=== PATIENT | male | born 1955 | race Caucasian/White ===

== ENCOUNTER → 2016-12-10 | Outpatient (CLI) | payer BC ==
[~2016-12-10] MED LIST: ALBUTEROL0.83 MG/ML IH; ASPIRIN 81M81 MG/TA2 PO; ATROVENT I0.2 MG/1 M IH; BREO IH; CARDIZEM CD 12120 MG PO; CARTIA XT180 MG PO; CELEXA10 MG PO; CLARITIN LIQUI-10 MG PO; DALIRESP500 MCG PO; DOXYCYCLINE 10100 MG PO; FLOMAX 0.40.4 MG/CAP PO; LEVAQUIN 5500 MG/TA1 PO; LEVAQUIN 750MG750 M1 PO; LEVSIN 0.10.125 MG/T PO; LYRICA 150MG C150 MG PO; METOZOLV ODT5 MG PO; MIRAPEX 0.0.125 MG/T PO; PREDNISONE20 MG PO; PRILOSEC 20MG20 MG PO; PROAIR HFA0.09 MG/AC IH; REGLAN 5MG T5 MG/TAB PO; RESTORIL30 MG; SINGULAIR 110 MG/TAB PO; TESSALON P100 MG/CAP PO; TUDORZA IH; ZITHROMAX 250M250 MG PO; ZOCOR 20MG20 MG PO
[2016-12-10 17:08] LABS: HEMATOCRIT 38.4 % (42.0-52.0); HEMOGLOBIN 13.3 g/dl (13.5-18.0); MEAN CELL VOLUME 105 fl (80.0-100.0); MEAN CORPUSCULAR HEMOGLOBIN 36 pg (27.0-31.0); MEAN CORPUSCULAR HGB CONC 35 g/dl (33.0-37.0); MEAN PLATELET VOLUME 9.2 fl (7.4-10.4); PLATELET COUNT 241 K/mm3 (130-400); RED BLOOD COUNT 3.67 M/mm3 (4.20-5.60); REDCELL DISTRIBUTION WIDTH-CV 14.6 % (11.5-14.5); WHITE BLOOD COUNT 10.9 K/mm3 (4.8-10.8)
[2016-12-10 17:12] LABS: INR 1.1 (0.8-3.0); PROTHROMBIN TIME 12.3 SECONDS (9.7-12.8)
[2016-12-10 17:15] LABS: PARTIAL THROMBOPLASTIN TIME 33.9 SECONDS (26.0-37.0)
== END ==
LOC: COL.LAB 16:45
PROVIDERS: Physician Assistant
DX: R23.3 Spontaneous ecchymoses (principal)

== ENCOUNTER 2017-01-22 22:07 | Emergency (ER) | payer BC ==
[~2017-01-22] VITALS: Ht 177.8 cm; Wt 68.2 kg
[~2017-01-22 22:07] MED LIST changes: -ALBUTEROL0.83 MG/ML IH; -BREO IH; -CARDIZEM CD 12120 MG PO; -CARTIA XT180 MG PO; -CELEXA10 MG PO; -DALIRESP500 MCG PO; -DOXYCYCLINE 10100 MG PO; -LEVAQUIN 750MG750 M1 PO; -LEVSIN 0.10.125 MG/T PO; -METOZOLV ODT5 MG PO; -MIRAPEX 0.0.125 MG/T PO; -PROAIR HFA0.09 MG/AC IH; -REGLAN 5MG T5 MG/TAB PO; -TUDORZA IH; -ZITHROMAX 250M250 MG PO; -ZOCOR 20MG20 MG PO
[2017-01-22 22:17] VITALS: TEMP 98.1
[2017-01-22 23:04] LABS: BASO # 0.1 (0.0-0.2); BASO % 0.5 % (0.0-2.0); EOS # 0.2 (0.0-0.7); EOS % 2.1 % (0-4.0); GRAN % 63.7 % (42.2-75.2); LYMPH # 2.4 (1.2-3.4); LYMPH % 21.5 % (20.0-51.0); MEAN CELL VOLUME 108 fl (80.0-100.0); MEAN CORPUSCULAR HGB CONC 34 g/dl (33.0-37.0); MEAN PLATELET VOLUME 9.7 fl (7.4-10.4); MONO # 1.3 (0.1-0.6); MONO % 11.5 % (1.7-9.3); PLATELET COUNT 240 K/mm3 (130-400); RED BLOOD COUNT 3.27 M/mm3 (4.20-5.60); REDCELL DISTRIBUTION WIDTH-CV 14.8 % (11.5-14.5)
[2017-01-22 23:05] LABS: HEMATOCRIT 35.4 % (42.0-52.0); HEMOGLOBIN 11.9 g/dl (13.5-18.0); MEAN CORPUSCULAR HEMOGLOBIN 36 pg (27.0-31.0)
[2017-01-22 23:12] LABS: ADJUSTED CALCIUM 9.3 mg/dL (8.4-10.2); ALANINE AMINOTRANSFERASE 23 U/L (21-72); ALBUMIN 4.3 gm/dL (3.5-5.0); ALKALINE PHOSPHATASE 67 U/L (50-136); ANION GAP 12 mmol/L (7-16); BILIRUBIN,TOTAL 0.6 mg/dL (0.0-1.0); BLOOD UREA NITROGEN 17 mg/dL (9-20); CALCIUM 9.5 mg/dL (8.4-10.2); CARBON DIOXIDE 31 mmol/L (22-30); CHLORIDE 99 mmol/L (98-107); CREATININE, serum 0.88 mg/dL (0.66-1.25); GLUCOSE 89 mg/dL (74-106); PHOSPHOROUS 4.4 mg/dL (2.5-4.5); POTASSIUM 3.7 mmol/L (3.4-5.0); SODIUM 142 mmol/L (137-145); TOTAL PROTEIN 7.5 gm/dL (6.4-8.2)
[2017-01-22 23:22] LABS: B-TYPE NATRIURETIC PEPTIDE 302 pg/mL (0-125)
[2017-01-22 23:23] LABS: PROTHROMBIN TIME 11.2 SECONDS (9.7-12.8)
[2017-01-22 23:26] LABS: PARTIAL THROMBOPLASTIN TIME 27.1 SECONDS (26.0-37.0)
[2017-01-22 23:40] LABS: TROPONIN-I < 0.012 ng/mL (0.000-0.034)
[2017-01-22 23:58] LABS: PH 7 (5-8); SQUAMOUS EPITHELIAL None Seen /hpf; URINE APPEARANCE Clear; URINE BACTERIA None Seen /hpf; URINE BILIRUBIN Negative (NEGATIVE); URINE BLOOD Negative (NEGATIVE); URINE COLOR Straw; URINE GLUCOSE Negative (NEGATIVE); URINE KETONE Negative (NEGATIVE); URINE RBC 0-2 /hpf; URINE UROBILINOGEN Negative (NEGATIVE); URINE WBC None Seen /hpf
[2017-01-23] MEDS ORDERED: FLOMAX 0.40.4 MG/CAP PO (00:29)
[2017-01-23] MEDS ORDERED: LEVAQUIN 750MG750 M1 PO (00:29)
[2017-01-23] MEDS ORDERED: PREDNISONE20 MG PO (00:29)
[2017-01-23 01:56] VITALS: BP 140/87; PULSE 79
[2017-08-07] MEDS ORDERED: ZITHROMAX 250M250 MG PO (15:20)
== END 2017-01-23 01:58 | disposition home or self-care (01) ==
LOC: COL.ER 22:07
PROVIDERS: Emergency Medicine
DX: J18.9 Pneumonia, unspecified organism (principal); R33.9 Retention of urine, unspecified; Z99.81 Dependence on supplemental oxygen; Z90.2 Acquired absence of lung [part of]; Z85.118 Personal history of other malignant neoplasm of bronchus and lung; I10 Essential (primary) hypertension
CPT/HCPCS: J2930; Q9967

== ENCOUNTER 2017-04-15 20:55 | Emergency (ER) | payer BC ==
[~2017-04-15] VITALS: Ht 177.8 cm; Wt 69.5 kg
[~2017-04-15 20:55] MED LIST changes: +LEVAQUIN 750MG750 M1 PO
[2017-04-15 20:57] VITALS: BP 127/83; TEMP 99.1
[2017-04-15] MEDS ORDERED: MIRAPEX 0.0.125 MG/T PO (21:15)
[2017-04-15] MEDS ORDERED: ALBUTEROL0.83 MG/ML IH (21:16)
[2017-04-15] MEDS ORDERED: CELEXA10 MG PO (21:16)
[2017-04-15] MEDS ORDERED: TUDORZA IH (21:16)
[2017-04-15] MEDS ORDERED: DOXYCYCLINE 10100 MG PO (22:04)
[2017-04-15] MEDS ORDERED: PREDNISONE20 MG PO (22:04)
[2017-04-15] MEDS ORDERED: BREO IH (22:07)
[2017-04-15] MEDS ORDERED: PROAIR HFA0.09 MG/AC IH (22:08)
[2017-04-15 22:35] VITALS: PULSE 93
[2017-08-07] MEDS ORDERED: ZITHROMAX 250M250 MG PO (15:20)
== END 2017-04-15 22:37 | disposition home or self-care (01) ==
LOC: COL.ER 20:55
DX: J44.9 Chronic obstructive pulmonary disease, unspecified (principal); I27.2 Other secondary pulmonary hypertension; Z85.118 Personal history of other malignant neoplasm of bronchus and lung
CPT/HCPCS: J7512

== ENCOUNTER 2017-05-20 17:05 | Emergency (ER) | payer BC ==
[~2017-05-20] VITALS: Ht 177.8 cm; Wt 68.2 kg
[~2017-05-20 17:05] MED LIST changes: +ALBUTEROL0.83 MG/ML IH; +BREO IH; +CELEXA10 MG PO; +DOXYCYCLINE 10100 MG PO; +MIRAPEX 0.0.125 MG/T PO; +PROAIR HFA0.09 MG/AC IH; +TUDORZA IH
[2017-05-20 17:09] VITALS: TEMP 98.2
[2017-05-20] MEDS ORDERED: DALIRESP500 MCG PO (17:32)
[2017-05-20] MEDS ORDERED: CARDIZEM CD 12120 MG PO (17:33)
[2017-05-20 17:47] LABS: HEMOGLOBIN 16.8 g/dl (13.5-18.0); MEAN CELL VOLUME 105 fl (80.0-100.0); MEAN CORPUSCULAR HEMOGLOBIN 38 pg (27.0-31.0); MEAN CORPUSCULAR HGB CONC 37 g/dl (33.0-37.0); MEAN PLATELET VOLUME 9.2 fl (7.4-10.4); PLATELET COUNT 252 K/mm3 (130-400); RED BLOOD COUNT 4.37 M/mm3 (4.20-5.60)
[2017-05-20 17:51] LABS: ADD PATHOLOGY DIFF REVIEW NO; PROTHROMBIN TIME 10.6 SECONDS (9.7-12.8); WHITE BLOOD COUNT 20.4 K/mm3 (4.8-10.8)
[2017-05-20 17:54] LABS: PARTIAL THROMBOPLASTIN TIME 24.6 SECONDS (26.0-37.0)
[2017-05-20 17:55] LABS: ADJUSTED CALCIUM 9.5 mg/dL (8.4-10.2); ALBUMIN 4.8 gm/dL (3.5-5.0); BILIRUBIN,TOTAL 0.8 mg/dL (0.0-1.0); CALCIUM 10.1 mg/dL (8.4-10.2); CREATININE, serum 1.05 mg/dL (0.66-1.25); POTASSIUM 4.7 mmol/L (3.4-5.0)
[2017-05-20 18:07] LABS: BAND 4 % (0-10); EOSINOPHIL 2 % (0-4); METAMYELOCYTE 1 % (0-0); NEUTROPHILS 69 % (42.0-75.2); POLYCHROMASIA 1+; TOTAL CELLS COUNTED 100; TROPONIN-I 0.018 ng/mL (0.000-0.034)
[2017-05-20 18:56] LABS: ALLEN TEST YES; ARTERIAL BLD GAS O2 SATURATION 96.2 % (92-100); ARTERIAL BLOOD GAS BASE EXCESS -0.8 (-2-2); ARTERIAL BLOOD GAS HCO3 21.1 meq/L (22-26); ARTERIAL BLOOD GAS PO2 82.9 mmHg (80-100); ARTERIAL BLOOD GAS pH 7.48 (7.35-7.45); ATS? YES; OXYHEMOGLOBIN 94.1 %
[2017-05-20 19:56] LABS: PH 5 (5-8); SQUAMOUS EPITHELIAL None Seen /hpf; URINE APPEARANCE Clear; URINE BACTERIA None Seen /hpf; URINE BILIRUBIN Negative (NEGATIVE); URINE BLOOD 1+ (NEGATIVE); URINE COLOR Yellow; URINE GLUCOSE Negative (NEGATIVE); URINE KETONE Negative (NEGATIVE); URINE RBC 0-2 /hpf; URINE UROBILINOGEN Negative (NEGATIVE); URINE WBC 0-2 /hpf
[2017-05-20 20:00] VITALS: BP 120/87; PULSE 96
[2017-07-25] VITALS (331 sets, daily range): O2SAT 64–100
[2017-07-26] VITALS (1279 sets, daily range): O2SAT 86–100
[2017-07-27] VITALS (816 sets, daily range): O2SAT 84–100
[2017-08-07] MEDS ORDERED: ZITHROMAX 250M250 MG PO (15:20)
== END 2017-05-20 20:00 | disposition home or self-care (01) ==
LOC: COL.ER 17:05
PROVIDERS: Family Medicine
DX: R06.00 Dyspnea, unspecified (principal); I48.92 Unspecified atrial flutter; Z85.118 Personal history of other malignant neoplasm of bronchus and lung; Z90.2 Acquired absence of lung [part of]

== ENCOUNTER → 2017-07-22 | Outpatient (CLI) | payer BC ==
[~2017-07-22] MED LIST changes: +CARDIZEM CD 12120 MG PO; +CARTIA XT180 MG PO; +DALIRESP500 MCG PO; +LEVSIN 0.10.125 MG/T PO; +METOZOLV ODT5 MG PO; +REGLAN 5MG T5 MG/TAB PO; +ZITHROMAX 250M250 MG PO; +ZOCOR 20MG20 MG PO
== END ==
LOC: COL.RAD 10:11
DX: R94.6 Abnormal results of thyroid function studies (principal)
CPT/HCPCS: A9516

== ENCOUNTER 2017-07-25 14:11 | Inpatient (IN) | payer BC ==
[~2017-07-25] VITALS: Ht 177.8 cm; Wt 68.7 kg
[~2017-07-25 14:11] MED LIST changes: -CARTIA XT180 MG PO; -LEVSIN 0.10.125 MG/T PO; -METOZOLV ODT5 MG PO; -REGLAN 5MG T5 MG/TAB PO; -ZITHROMAX 250M250 MG PO; -ZOCOR 20MG20 MG PO
[2017-07-25 14:43] LABS: BASO # 0.1 (0.0-0.2); BASO % 0.3 % (0.0-2.0); EOS # 0.1 (0.0-0.7); EOS % 0.6 % (0-4.0); GRAN # 14.3 (1.4-6.5); GRAN % 84.2 % (42.2-75.2); HEMATOCRIT 37.6 % (42.0-52.0); HEMOGLOBIN 12.5 g/dl (13.5-18.0); LYMPH # 1.5 (1.2-3.4); LYMPH % 8.6 % (20.0-51.0); MEAN CELL VOLUME 112 fl (80.0-100.0); MEAN CORPUSCULAR HEMOGLOBIN 37 pg (27.0-31.0); MEAN CORPUSCULAR HGB CONC 33 g/dl (33.0-37.0); MEAN PLATELET VOLUME 9.3 fl (7.4-10.4); MONO % 5.9 % (1.7-9.3); PLATELET COUNT 224 K/mm3 (130-400); RED BLOOD COUNT 3.36 M/mm3 (4.20-5.60); REDCELL DISTRIBUTION WIDTH-CV 14.5 % (11.5-14.5)
[2017-07-25 14:53] LABS: ADJUSTED CALCIUM 9.1 mg/dL (8.4-10.2); BILIRUBIN,TOTAL 0.5 mg/dL (0.0-1.0); CALCIUM 9.1 mg/dL (8.4-10.2); CREATININE, serum 0.74 mg/dL (0.66-1.25); POTASSIUM 3.6 mmol/L (3.4-5.0); TOTAL PROTEIN 6.8 gm/dL (6.4-8.2)
[2017-07-25] MEDS ORDERED: METOZOLV ODT5 MG PO (15:21)
[2017-07-25] MEDS ORDERED: LEVSIN 0.10.125 MG/T PO (15:22)
[2017-07-25] MEDS ORDERED: ZOCOR 20MG20 MG PO (15:24)
[2017-07-25 17:39] VITALS: O2SAT 86
[2017-07-25 17:40] VITALS: O2SAT 92
[2017-07-25 17:44] VITALS: BP 119/69; PULSE 106; TEMP 100.5
[2017-07-25] MEDS ORDERED: CARTIA XT180 MG PO (18:47)
[2017-07-25 19:19] LABS: ARTERIAL BLD GAS O2 SATURATION 82.8 % (92-100); ARTERIAL BLD GAS TCO2 CT 25.3; ARTERIAL BLOOD GAS BASE EXCESS -3.2 (-2-2); ARTERIAL BLOOD GAS HCO3 23.7 meq/L (22-26); ARTERIAL BLOOD GAS PO2 52.7 mmHg (80-100); ARTERIAL BLOOD GAS pH 7.29 (7.35-7.45); OXYHEMOGLOBIN 81.1 %
[2017-07-25 19:20] LABS: ALLEN TEST YES; ATS? YES
[2017-07-25 19:21] LABS: ALLENS TEST RESULT PASS
[2017-07-25] MEDS ORDERED: REGLAN 5MG T5 MG/TAB PO (19:38)
[2017-07-25] MEDS ORDERED: BREO IH (19:40)
[2017-07-25 20:00] VITALS: BP 86/56; PULSE 104; TEMP 100
[2017-07-26] VITALS: BP 104/71; PULSE 91; TEMP 98.2
[2017-07-26 04:00] VITALS: BP 108/79; PULSE 80; TEMP 97.7
[2017-07-26 04:04] LABS: ARTERIAL BLOOD GAS BASE EXCESS 0.1 (-2-2); ARTERIAL BLOOD GAS HCO3 26.1 meq/L (22-26); ARTERIAL BLOOD GAS PO2 106.3 mmHg (80-100); ARTERIAL BLOOD GAS pH 7.35 (7.35-7.45)
[2017-07-26 04:05] LABS: ALLEN TEST YES; ARTERIAL BLD GAS O2 SATURATION 97.1 % (92-100); ATS? YES
[2017-07-26 04:06] LABS: ALLENS TEST RESULT PASS
[2017-07-26 08:00] VITALS: BP 138/91; PULSE 65; TEMP 97.9
[2017-07-26 09:36] LABS: ARTERIAL BLD GAS O2 SATURATION 95.7 % (92-100); ARTERIAL BLD GAS TCO2 CT 25.5; ARTERIAL BLOOD GAS BASE EXCESS -0.9 (-2-2); ARTERIAL BLOOD GAS HCO3 24.2 meq/L (22-26); ARTERIAL BLOOD GAS PHT 7.38 C (7.35-7.45); ARTERIAL BLOOD GAS pH 7.38 (7.35-7.45); OXYHEMOGLOBIN 94.7 %
[2017-07-26 09:37] LABS: ATS? YES
[2017-07-26 09:37] LABS: MEAN CELL VOLUME 112 fl (80.0-100.0); MEAN CORPUSCULAR HGB CONC 34 g/dl (33.0-37.0); MEAN PLATELET VOLUME 10.1 fl (7.4-10.4); PLATELET COUNT 163 K/mm3 (130-400); RED BLOOD COUNT 2.96 M/mm3 (4.20-5.60); REDCELL DISTRIBUTION WIDTH-CV 14.4 % (11.5-14.5); WHITE BLOOD COUNT 19.2 K/mm3 (4.8-10.8)
[2017-07-26 09:45] LABS: CALCIUM 8.6 mg/dL (8.4-10.2); CREATININE, serum 0.62 mg/dL (0.66-1.25); POTASSIUM 3.7 mmol/L (3.4-5.0)
[2017-07-26 09:55] LABS: ADD PATHOLOGY DIFF REVIEW NO; HEMOGLOBIN 11.1 g/dl (13.5-18.0); MEAN CORPUSCULAR HEMOGLOBIN 38 pg (27.0-31.0)
[2017-07-26 10:09] LABS: MAGNESIUM 1.8 mg/dL (1.6-2.3); PHOSPHOROUS 4.1 mg/dL (2.5-4.5)
[2017-07-26 10:24] LABS: BAND 18 % (0-10); NEUTROPHILS 77 % (42.0-75.2); PLATELET ESTIMATE NORMAL (NORMAL); TOTAL CELLS COUNTED 100
[2017-07-26 12:00] VITALS: BP 105/69; PULSE 71; TEMP 98
[2017-07-26 16:19] VITALS: BP 113/73; PULSE 74; TEMP 98.3
[2017-07-26 20:00] VITALS: BP 108/69; PULSE 96; TEMP 98
[2017-07-27] VITALS: BP 130/77; PULSE 68; TEMP 97.9
[2017-07-27 04:00] VITALS: BP 133/79; PULSE 62; TEMP 96.6
[2017-07-27 04:08] LABS: MEAN CELL VOLUME 108 fl (80.0-100.0); MEAN CORPUSCULAR HGB CONC 34 g/dl (33.0-37.0); PLATELET COUNT 144 K/mm3 (130-400); RED BLOOD COUNT 2.84 M/mm3 (4.20-5.60)
[2017-07-27 04:14] LABS: ADD PATHOLOGY DIFF REVIEW NO; HEMATOCRIT 30.6 % (42.0-52.0); HEMOGLOBIN 10.5 g/dl (13.5-18.0); MEAN CORPUSCULAR HEMOGLOBIN 37 pg (27.0-31.0); WHITE BLOOD COUNT 21.8 K/mm3 (4.8-10.8)
[2017-07-27 04:36] LABS: BAND 19 % (0-10); NEUTROPHILS 72 % (42.0-75.2); PLATELET ESTIMATE NORMAL (NORMAL); TOTAL CELLS COUNTED 100
[2017-07-27 12:00] VITALS: BP 128/80; PULSE 78; TEMP 97.5
[2017-07-27 16:58] VITALS: BP 118/88; PULSE 83; TEMP 98.7
[2017-07-27 19:30] VITALS: BP 128/69; PULSE 80; TEMP 97.4
[2017-07-28] VITALS (7 sets, daily range): BP systolic 107–141; BP diastolic 68–78; PULSE 65–84; TEMP 97.8–99.9
[2017-07-28 07:51] LABS: MEAN CELL VOLUME 108 fl (80.0-100.0); MEAN CORPUSCULAR HGB CONC 34 g/dl (33.0-37.0); MEAN PLATELET VOLUME 10.4 fl (7.4-10.4); PLATELET COUNT 191 K/mm3 (130-400); RED BLOOD COUNT 2.96 M/mm3 (4.20-5.60); REDCELL DISTRIBUTION WIDTH-CV 14.1 % (11.5-14.5)
[2017-07-28 08:08] LABS: HEMATOCRIT 31.9 % (42.0-52.0); HEMOGLOBIN 10.8 g/dl (13.5-18.0); MEAN CORPUSCULAR HEMOGLOBIN 36 pg (27.0-31.0); WHITE BLOOD COUNT 21.1 K/mm3 (4.8-10.8)
[2017-07-28 08:15] LABS: ADJUSTED CALCIUM 9.3 mg/dL (8.4-10.2); ALBUMIN 3.2 gm/dL (3.5-5.0); BILIRUBIN,TOTAL 0.5 mg/dL (0.0-1.0); CALCIUM 8.7 mg/dL (8.4-10.2); CREATININE, serum 0.64 mg/dL (0.66-1.25); POTASSIUM 3.3 mmol/L (3.4-5.0); TOTAL PROTEIN 5.8 gm/dL (6.4-8.2)
[2017-07-28 09:21] LABS: BAND 57 % (0-10); HYPOCHROMIA 1+; MYELOCYTE 1 % (0-0); NEUTROPHILS 37 % (42.0-75.2); PLATELET ESTIMATE NORMAL (NORMAL); TOTAL CELLS COUNTED 100
[2017-07-28 09:22] LABS: ADD PATHOLOGY DIFF REVIEW YES; OVALOCYTES 1+
[2017-07-29 03:54] VITALS: BP 142/80; PULSE 64; TEMP 98
[2017-07-29 07:24] VITALS: BP 137/83; PULSE 74; TEMP 97.6
[2017-07-29 08:06] LABS: BASO % 0.1 % (0.0-2.0); GRAN # 11.9 (1.4-6.5); GRAN % 85.8 % (42.2-75.2); LYMPH # 0.9 (1.2-3.4); LYMPH % 6.5 % (20.0-51.0); MEAN CELL VOLUME 107 fl (80.0-100.0); MEAN CORPUSCULAR HGB CONC 34 g/dl (33.0-37.0); MEAN PLATELET VOLUME 9.9 fl (7.4-10.4); MONO # 0.9 (0.1-0.6); MONO % 6.7 % (1.7-9.3); PLATELET COUNT 172 K/mm3 (130-400); RED BLOOD COUNT 3.09 M/mm3 (4.20-5.60); REDCELL DISTRIBUTION WIDTH-CV 14.2 % (11.5-14.5); WHITE BLOOD COUNT 13.8 K/mm3 (4.8-10.8)
[2017-07-29 08:07] LABS: HEMATOCRIT 33.1 % (42.0-52.0); HEMOGLOBIN 11.3 g/dl (13.5-18.0); MEAN CORPUSCULAR HEMOGLOBIN 37 pg (27.0-31.0)
[2017-07-29] MEDS ORDERED: DOXYCYCLINE 10100 MG PO (10:35)
[2017-07-29] MEDS ORDERED: PREDNISONE20 MG PO (10:39)
[2017-07-29 12:10] VITALS: BP 108/66; PULSE 86; TEMP 99
[2017-07-30 08:21] LABS: PATHOLOGY DIFF REVIEW OK +
[2017-08-07] MEDS ORDERED: ZITHROMAX 250M250 MG PO (15:20)
== END 2017-07-29 16:12 | disposition home health service (06) | DRG 871 ==
LOC: COL.ER 14:11 → ICU 16:28 → MEDICAL 07-27 15:25
PROVIDERS: Emergency Medicine; Internal Medicine Cardiovascular Disease; Internal Medicine Pulmonary Disease; Nurse Practitioner Family
PROC: 02HV33Z Insertion of Infusion Device into Superior Vena Cava, Percutaneous Approach (ICD-10-PCS; principal; 2017-07-25)
DX: A41.9 Sepsis, unspecified organism (principal); J18.9 Pneumonia, unspecified organism; J96.01 Acute respiratory failure with hypoxia; J44.0 Chronic obstructive pulmonary disease with (acute) lower respiratory infection; J44.1 Chronic obstructive pulmonary disease with (acute) exacerbation; I48.92 Unspecified atrial flutter; I50.32 Chronic diastolic (congestive) heart failure; N40.1 Benign prostatic hyperplasia with lower urinary tract symptoms; R33.8 Other retention of urine; I27.2 Other secondary pulmonary hypertension; I11.0 Hypertensive heart disease with heart failure; Z85.118 Personal history of other malignant neoplasm of bronchus and lung; F17.210 Nicotine dependence, cigarettes, uncomplicated; R73.9 Hyperglycemia, unspecified; T38.0X5A Adverse effect of glucocorticoids and synthetic analogues, initial encounter; E87.6 Hypokalemia
CPT/HCPCS: 99223-AI; 99233-AI; 99239; C1751; J1170; J1644; J1650; J1815; J1956; J2405; J2543; J2920; J3370; J7030; J7050; J7120; J7512; Q9967

== ENCOUNTER 2017-08-07 12:32 | Emergency (ER) | payer BC ==
[~2017-08-07] VITALS: Ht 175.3 cm; Wt 63.4 kg
[~2017-08-07 12:32] MED LIST changes: +CARTIA XT180 MG PO; +LEVSIN 0.10.125 MG/T PO; +METOZOLV ODT5 MG PO; +REGLAN 5MG T5 MG/TAB PO; +ZOCOR 20MG20 MG PO
[2017-08-07 12:39] VITALS: TEMP 99
[2017-08-07 13:15] LABS: BASO % 0.3 % (0.0-2.0); EOS % 0.2 % (0-4.0); GRAN # 13.2 (1.4-6.5); GRAN % 89.2 % (42.2-75.2); LYMPH # 0.8 (1.2-3.4); LYMPH % 5.4 % (20.0-51.0); MEAN CELL VOLUME 106 fl (80.0-100.0); MEAN CORPUSCULAR HGB CONC 35 g/dl (33.0-37.0); MEAN PLATELET VOLUME 9.6 fl (7.4-10.4); MONO # 0.5 (0.1-0.6); MONO % 3.7 % (1.7-9.3); PLATELET COUNT 252 K/mm3 (130-400); RED BLOOD COUNT 3.26 M/mm3 (4.20-5.60); REDCELL DISTRIBUTION WIDTH-CV 14.1 % (11.5-14.5); WHITE BLOOD COUNT 14.7 K/mm3 (4.8-10.8)
[2017-08-07 13:23] LABS: HEMATOCRIT 34.5 % (42.0-52.0); HEMOGLOBIN 11.9 g/dl (13.5-18.0); MEAN CORPUSCULAR HEMOGLOBIN 37 pg (27.0-31.0)
[2017-08-07 13:29] LABS: ADJUSTED CALCIUM 9.2 mg/dL (8.4-10.2); ALANINE AMINOTRANSFERASE 26 U/L (21-72); ALBUMIN 3.8 gm/dL (3.5-5.0); ALKALINE PHOSPHATASE 50 U/L (50-136); ANION GAP 11 mmol/L (7-16); BILIRUBIN,TOTAL 0.6 mg/dL (0.0-1.0); BLOOD UREA NITROGEN 15 mg/dL (9-20); CARBON DIOXIDE 24 mmol/L (22-30); CHLORIDE 105 mmol/L (98-107); CREATININE, serum 0.72 mg/dL (0.66-1.25); GLUCOSE 127 mg/dL (74-106); LIPASE 131 U/L (23-300); POTASSIUM 3.9 mmol/L (3.4-5.0); SODIUM 140 mmol/L (137-145); TOTAL PROTEIN 6.4 gm/dL (6.4-8.2)
[2017-08-07 13:41] LABS: B-TYPE NATRIURETIC PEPTIDE 270 pg/mL (0-125)
[2017-08-07 13:42] LABS: TROPONIN-I < 0.012 ng/mL (0.000-0.034)
[2017-08-07] MEDS ORDERED: ZITHROMAX 250M250 MG PO ×2 (15:20)
[2017-08-07 16:22] VITALS: BP 116/75; PULSE 104
[2017-08-23] MEDS ORDERED: CHANTIX 0.5MG0.5 MG PO (17:14)
[2017-08-26] MEDS ORDERED: LEVAQUIN 750MG750 M1 PO (14:01)
[2017-08-26] MEDS ORDERED: CARDIZEM CD 24240 MG PO (14:03)
[2017-08-26] MEDS ORDERED: MUCINEX1200 MG PO (14:03)
[2017-08-26] MEDS ORDERED: PREDNISONE10 MG PO (14:16)
== END 2017-08-07 16:25 | disposition home or self-care (01) ==
LOC: COL.ER 12:32
PROVIDERS: Emergency Medicine
DX: R07.89 Other chest pain (principal); I10 Essential (primary) hypertension; J44.9 Chronic obstructive pulmonary disease, unspecified; N40.0 Benign prostatic hyperplasia without lower urinary tract symptoms; F17.210 Nicotine dependence, cigarettes, uncomplicated; Z85.118 Personal history of other malignant neoplasm of bronchus and lung; Z90.89 Acquired absence of other organs; Z90.2 Acquired absence of lung [part of]
CPT/HCPCS: J7512; Q9967

== ENCOUNTER 2017-08-22 13:34 | Emergency (ER) | payer BC ==
[~2017-08-22] VITALS: Ht 175.3 cm; Wt 63.6 kg
[~2017-08-22 13:34] MED LIST changes: +ZITHROMAX 250M250 MG PO
[2017-08-22] MEDS ORDERED: OXYCONTIN 10MG10 MG PO (13:56)
[2017-08-22 13:59] LABS: BASO # 0.1 (0.0-0.2); BASO % 0.3 % (0.0-2.0); EOS # 0.3 (0.0-0.7); EOS % 1.4 % (0-4.0); GRAN # 14.7 (1.4-6.5); GRAN % 79.3 % (42.2-75.2); HEMATOCRIT 45.4 % (42.0-52.0); HEMOGLOBIN 15.6 g/dl (13.5-18.0); LYMPH % 10.8 % (20.0-51.0); MEAN CELL VOLUME 104 fl (80.0-100.0); MEAN CORPUSCULAR HEMOGLOBIN 36 pg (27.0-31.0); MEAN CORPUSCULAR HGB CONC 34 g/dl (33.0-37.0); MONO # 1.4 (0.1-0.6); MONO % 7.3 % (1.7-9.3); PLATELET COUNT 210 K/mm3 (130-400); RED BLOOD COUNT 4.35 M/mm3 (4.20-5.60); REDCELL DISTRIBUTION WIDTH-CV 14.3 % (11.5-14.5); WHITE BLOOD COUNT 18.5 K/mm3 (4.8-10.8)
[2017-08-22 14:12] LABS: ADJUSTED CALCIUM 9.2 mg/dL (8.4-10.2); ALANINE AMINOTRANSFERASE 24 U/L (21-72); ALBUMIN 4.2 gm/dL (3.5-5.0); ALKALINE PHOSPHATASE 69 U/L (50-136); ANION GAP 12 mmol/L (7-16); BILIRUBIN,TOTAL 0.6 mg/dL (0.0-1.0); BLOOD UREA NITROGEN 19 mg/dL (9-20); CALCIUM 9.4 mg/dL (8.4-10.2); CARBON DIOXIDE 25 mmol/L (22-30); CHLORIDE 99 mmol/L (98-107); CREATININE, serum 0.81 mg/dL (0.66-1.25); GLUCOSE 157 mg/dL (74-106); POTASSIUM 3.8 mmol/L (3.4-5.0); SODIUM 136 mmol/L (137-145); TOTAL PROTEIN 7.1 gm/dL (6.4-8.2)
[2017-08-22 14:23] LABS: B-TYPE NATRIURETIC PEPTIDE 628 pg/mL (0-125)
[2017-08-22 14:25] LABS: TROPONIN-I < 0.012 ng/mL (0.000-0.034)
[2017-08-22 16:29] VITALS: TEMP 97.7
[2017-08-22] MEDS ORDERED: PREDNISONE10 MG PO ×2 (16:56)
[2017-08-22 17:36] LABS: PH 5 (5-8); SQUAMOUS EPITHELIAL None Seen /hpf; URINE APPEARANCE Clear; URINE BACTERIA None Seen /hpf; URINE BILIRUBIN Negative (NEGATIVE); URINE BLOOD Negative (NEGATIVE); URINE COLOR Yellow; URINE GLUCOSE Negative (NEGATIVE); URINE KETONE Negative (NEGATIVE); URINE UROBILINOGEN Negative (NEGATIVE); URINE WBC 0-2 /hpf
[2017-08-22] MEDS ORDERED: IPRATROPIUM BROM3 M1 IH (18:45)
[2017-08-22 19:13] VITALS: BP 106/84; PULSE 101
[2017-08-23] VITALS (366 sets, daily range): O2SAT 91–100
[2017-08-23] MEDS ORDERED: CHANTIX 0.5MG0.5 MG PO (17:14)
[2017-08-24] VITALS (852 sets, daily range): O2SAT 89–100
[2017-08-26] MEDS ORDERED: LEVAQUIN 750MG750 M1 PO (14:01)
[2017-08-26] MEDS ORDERED: MUCINEX1200 MG PO (14:03)
[2017-08-26] MEDS ORDERED: CARDIZEM CD 24240 MG PO (14:03)
[2017-08-26] MEDS ORDERED: PREDNISONE10 MG PO (14:16)
== END 2017-08-22 19:14 | disposition home or self-care (01) ==
LOC: COL.ER 13:34
PROVIDERS: Physician Assistant
DX: J44.1 Chronic obstructive pulmonary disease with (acute) exacerbation (principal); F17.210 Nicotine dependence, cigarettes, uncomplicated; Z99.81 Dependence on supplemental oxygen; R79.9 Abnormal finding of blood chemistry, unspecified; Z85.118 Personal history of other malignant neoplasm of bronchus and lung; Z90.2 Acquired absence of lung [part of]; I48.92 Unspecified atrial flutter
CPT/HCPCS: J2930; J7030; J7512

== ENCOUNTER 2017-09-08 13:43 | Emergency (ER) | payer MEDICARE ==
[~2017-09-08] VITALS: Ht 175.3 cm; Wt 63.6 kg
[~2017-09-08 13:43] MED LIST changes: +CARDIZEM CD 24240 MG PO; +CHANTIX 0.5MG0.5 MG PO; +IPRATROPIUM BROM3 M1 IH; +MUCINEX1200 MG PO; +OXYCONTIN 10MG10 MG PO; +PREDNISONE10 MG PO
[2017-09-08 13:46] VITALS: TEMP 99
[2017-09-08 14:22] LABS: BASO % 0.2 % (0.0-2.0); EOS # 0.1 (0.0-0.7); GRAN # 8.6 (1.4-6.5); HEMATOCRIT 38.1 % (42.0-52.0); HEMOGLOBIN 12.5 g/dl (13.5-18.0); LYMPH # 1.6 (1.2-3.4); LYMPH % 14.6 % (20.0-51.0); MEAN CELL VOLUME 110 fl (80.0-100.0); MEAN CORPUSCULAR HEMOGLOBIN 36 pg (27.0-31.0); MEAN CORPUSCULAR HGB CONC 33 g/dl (33.0-37.0); MEAN PLATELET VOLUME 9.5 fl (7.4-10.4); MONO # 0.7 (0.1-0.6); MONO % 6.5 % (1.7-9.3); PLATELET COUNT 209 K/mm3 (130-400); RED BLOOD COUNT 3.47 M/mm3 (4.20-5.60); WHITE BLOOD COUNT 11.2 K/mm3 (4.8-10.8)
[2017-09-08 14:46] LABS: ADJUSTED CALCIUM 9.5 mg/dL (8.4-10.2); ALANINE AMINOTRANSFERASE 33 U/L (21-72); ALKALINE PHOSPHATASE 70 U/L (50-136); ANION GAP 9 mmol/L (7-16); BILIRUBIN,TOTAL 0.8 mg/dL (0.0-1.0); BLOOD UREA NITROGEN 14 mg/dL (9-20); C-REACTIVE PROTEIN 3.3 mg/dL (0.0-0.9); CALCIUM 9.5 mg/dL (8.4-10.2); CARBON DIOXIDE 32 mmol/L (22-30); CHLORIDE 97 mmol/L (98-107); CREATININE, serum 0.73 mg/dL (0.66-1.25); GLUCOSE 94 mg/dL (74-106); SODIUM 137 mmol/L (137-145); TOTAL PROTEIN 6.8 gm/dL (6.4-8.2)
[2017-09-08 15:00] LABS: TROPONIN-I < 0.012 ng/mL (0.000-0.034)
[2017-09-08] MEDS ORDERED: MORPHINE 1515 MG/TAB PO (15:20)
[2017-09-08 18:49] VITALS: BP 108/67; PULSE 84
== END 2017-09-08 19:07 | disposition home or self-care (01) ==
LOC: COL.ER 13:43
PROVIDERS: Emergency Medicine
DX: R09.1 Pleurisy (principal); R07.89 Other chest pain; I10 Essential (primary) hypertension; I48.91 Unspecified atrial fibrillation; J44.9 Chronic obstructive pulmonary disease, unspecified; F17.210 Nicotine dependence, cigarettes, uncomplicated; Z85.118 Personal history of other malignant neoplasm of bronchus and lung; Z90.2 Acquired absence of lung [part of]
CPT/HCPCS: J2270; Q9967

== ENCOUNTER 2017-10-08 18:58 | Emergency (ER) | payer MEDICARE ==
[~2017-10-08] VITALS: Ht 175.3 cm; Wt 59.1 kg
[~2017-10-08 18:58] MED LIST changes: +CEFTIN500 MG PO; +MS CONTIN 115 MG/TAB PO; +NORCO 325 MG-51 TAB PO; +NYSTATIN OR100 MU/ML PO; +RESTORIL30 MG PO; +ZITHROMAX500 M2 PO
[2017-10-08 19:18] VITALS: TEMP 99.7
[2017-10-08 20:24] LABS: MEAN CELL VOLUME 106 fl (80.0-100.0); MEAN CORPUSCULAR HGB CONC 33 g/dl (33.0-37.0); MEAN PLATELET VOLUME 9.5 fl (7.4-10.4); PLATELET COUNT 171 K/mm3 (130-400); RED BLOOD COUNT 2.89 M/mm3 (4.20-5.60)
[2017-10-08 20:29] LABS: ADD PATHOLOGY DIFF REVIEW NO; HEMATOCRIT 30.5 % (42.0-52.0); MEAN CORPUSCULAR HEMOGLOBIN 35 pg (27.0-31.0)
[2017-10-08 20:35] LABS: ALANINE AMINOTRANSFERASE 24 U/L (21-72); ALBUMIN 3.7 gm/dL (3.5-5.0); ALKALINE PHOSPHATASE 71 U/L (50-136); ANION GAP 8 mmol/L (7-16); BILIRUBIN,TOTAL 0.6 mg/dL (0.0-1.0); BLOOD UREA NITROGEN 11 mg/dL (9-20); CALCIUM 8.8 mg/dL (8.4-10.2); CARBON DIOXIDE 29 mmol/L (22-30); CHLORIDE 99 mmol/L (98-107); CREATININE, serum 0.61 mg/dL (0.66-1.25); GLUCOSE 122 mg/dL (74-106); LIPASE 26 U/L (23-300); POTASSIUM 3.7 mmol/L (3.4-5.0); SODIUM 135 mmol/L (137-145); TOTAL PROTEIN 6.5 gm/dL (6.4-8.2)
[2017-10-08 20:43] LABS: B-TYPE NATRIURETIC PEPTIDE 302 pg/mL (0-125)
[2017-10-08 20:53] LABS: BAND 4 % (0-10); BASOPHIL 1 % (0-2); EOSINOPHIL 1 % (0-4); LYMPHOCYTE 9 % (20.0-51.0); METAMYELOCYTE 1 % (0-0); NEUTROPHILS 78 % (42.0-75.2); TOTAL CELLS COUNTED 100; TROPONIN-I < 0.012 ng/mL (0.000-0.034)
[2017-10-08 20:54] LABS: ANISOCYTOSIS 2+; HYPOCHROMIA 1+; POLYCHROMASIA 1+
[2017-10-08 20:55] LABS: BURR CELLS 1+
[2017-10-08 21:11] LABS: ARTERIAL BLD GAS O2 SATURATION 93.6 % (92-100); ARTERIAL BLD GAS TCO2 CT 27.1; ARTERIAL BLOOD GAS HCO3 25.8 meq/L (22-26); ARTERIAL BLOOD GAS PO2 72.8 mmHg (80-100); ARTERIAL BLOOD GAS PO2T 75.8 (80-100); ARTERIAL BLOOD GAS pH 7.41 (7.35-7.45); OXYHEMOGLOBIN 92.6 %
[2017-10-08 21:12] LABS: ALLEN TEST YES; ALLENS TEST RESULT PASS; ATS? YES
[2017-10-08 23:36] VITALS: BP 109/64; PULSE 87
== END 2017-10-08 23:47 | disposition short-term general hospital (02) ==
LOC: COL.ER 18:58
PROVIDERS: Emergency Medicine
DX: J44.1 Chronic obstructive pulmonary disease with (acute) exacerbation (principal); J18.9 Pneumonia, unspecified organism; Z85.118 Personal history of other malignant neoplasm of bronchus and lung; Z87.891 Personal history of nicotine dependence
CPT/HCPCS: J2270; J2405; J2543; J7030; J7050; J7512; Q9967

== ENCOUNTER → 2017-12-02 | Outpatient (CLI) | payer MEDICARE ==
[~2017-12-02] VITALS: Ht 175.3 cm; Wt 65.0 kg
[~2017-12-02] MED LIST changes: +NORCO 325 MG-7.1 TAB PO; +PERCOCET 325 MG1 TA3 PO
[2017-12-02 09:26] VITALS: BP 100/56; PULSE 54
[2017-12-02 10:37] VITALS: BP 101/60; PULSE 54
== END ==
LOC: COL.RAD 08:30
DX: J90 Pleural effusion, not elsewhere classified (principal); M50.21 Other cervical disc displacement, high cervical region
CPT/HCPCS: G9654; J2704; J3010

== ENCOUNTER 2017-12-17 23:06 | Observation (INO) | payer MEDICARE ==
[~2017-12-17] VITALS: Ht 175.3 cm; Wt 60.6 kg
[2017-12-17] MEDS ORDERED: COUMADIN 5MG5 MG/TAB PO (23:14)
[2017-12-17 23:23] LABS: BASO # 0.1 (0.0-0.2); BASO % 0.6 % (0.0-2.0); EOS # 0.1 (0.0-0.7); EOS % 0.6 % (0-4.0); GRAN % 66.8 % (42.2-75.2); HEMATOCRIT 42.6 % (42.0-52.0); HEMOGLOBIN 14.1 g/dl (13.5-18.0); LYMPH # 1.7 (1.2-3.4); LYMPH % 18.5 % (20.0-51.0); MEAN CELL VOLUME 105 fl (80.0-100.0); MEAN CORPUSCULAR HEMOGLOBIN 35 pg (27.0-31.0); MEAN CORPUSCULAR HGB CONC 33 g/dl (33.0-37.0); MEAN PLATELET VOLUME 9.3 fl (7.4-10.4); MONO # 1.2 (0.1-0.6); MONO % 13.2 % (1.7-9.3); PLATELET COUNT 215 K/mm3 (130-400); RED BLOOD COUNT 4.06 M/mm3 (4.20-5.60); REDCELL DISTRIBUTION WIDTH-CV 15.1 % (11.5-14.5)
[2017-12-17 23:34] LABS: ALBUMIN 4.9 gm/dL (3.5-5.0); BILIRUBIN,TOTAL 0.5 mg/dL (0.0-1.0); C-REACTIVE PROTEIN 4.9 mg/dL (0.0-0.9); CALCIUM 9.8 mg/dL (8.4-10.2); CREATININE, serum 0.79 mg/dL (0.66-1.25); TOTAL PROTEIN 8.1 gm/dL (6.4-8.2)
[2017-12-17 23:43] LABS: TROPONIN-I 0.012 ng/mL (0.000-0.034)
[2017-12-18] VITALS (7 sets, daily range): BP systolic 95–126; BP diastolic 55–73; PULSE 47–86; TEMP 97.3–98.3
[2017-12-18 00:22] LABS: INFLUENZA A POSITIVE; INFLUENZA B NEGATIVE
[2017-12-18] MEDS ORDERED: LEVAQUIN 750MG750 M1 PO (01:55)
[2017-12-18 06:42] LABS: HEMATOCRIT 37.2 % (42.0-52.0); MEAN CELL VOLUME 106 fl (80.0-100.0); MEAN CORPUSCULAR HEMOGLOBIN 34 pg (27.0-31.0); MEAN CORPUSCULAR HGB CONC 32 g/dl (33.0-37.0); MEAN PLATELET VOLUME 9.7 fl (7.4-10.4); PLATELET COUNT 188 K/mm3 (130-400)
[2017-12-18 06:48] LABS: INR 1.8 (0.8-3.0); PROTHROMBIN TIME 21.2 SECONDS (9.7-12.8)
[2017-12-18 06:50] LABS: ALBUMIN 3.7 gm/dL (3.5-5.0); BILIRUBIN,TOTAL 0.3 mg/dL (0.0-1.0); CALCIUM 9.1 mg/dL (8.4-10.2); CREATININE, serum 0.74 mg/dL (0.66-1.25); POTASSIUM 4.5 mmol/L (3.4-5.0); TOTAL PROTEIN 6.5 gm/dL (6.4-8.2)
[2017-12-18 09:25] LABS: BAND 48 % (0-10); LYMPHOCYTE 2 % (20.0-51.0); NEUTROPHILS 46 % (42.0-75.2)
[2017-12-18 09:45] LABS: PLATELET ESTIMATE NORMAL (NORMAL)
[2017-12-18 09:46] LABS: ANISOCYTOSIS 1+
[2017-12-19 04:15] VITALS: BP 96/65; PULSE 68; TEMP 98.2
[2017-12-19 08:01] LABS: HEMOGLOBIN 12.4 g/dl (13.5-18.0); MEAN CELL VOLUME 104 fl (80.0-100.0); MEAN CORPUSCULAR HEMOGLOBIN 35 pg (27.0-31.0); MEAN CORPUSCULAR HGB CONC 34 g/dl (33.0-37.0); MEAN PLATELET VOLUME 9.8 fl (7.4-10.4); PLATELET COUNT 207 K/mm3 (130-400); RED BLOOD COUNT 3.54 M/mm3 (4.20-5.60); REDCELL DISTRIBUTION WIDTH-CV 14.6 % (11.5-14.5)
[2017-12-19 08:05] LABS: HEMATOCRIT 36.7 % (42.0-52.0)
[2017-12-19 08:10] LABS: INR 1.9 (0.8-3.0); PROTHROMBIN TIME 22.4 SECONDS (9.7-12.8)
[2017-12-19 08:15] LABS: CALCIUM 9.3 mg/dL (8.4-10.2); CREATININE, serum 0.6 mg/dL (0.66-1.25)
[2017-12-19] MEDS ORDERED: TAMIFLU 75MG75 MG PO (08:16)
[2017-12-19 08:31] VITALS: BP 97/61; PULSE 81; TEMP 97.6
[2017-12-19 09:06] LABS: BAND 40 % (0-10); LYMPHOCYTE 8 % (20.0-51.0); NEUTROPHILS 51 % (42.0-75.2); OVALOCYTES 1+; PLATELET ESTIMATE NORMAL (NORMAL)
[2017-12-19] MEDS ORDERED: MEDROL 4MG DOSPA4 MG PO (10:02)
[2017-12-24] MEDS ORDERED: AMOXICILLIN 8751 TAB PO (09:48)
[2017-12-24] MEDS ORDERED: ZITHROMAX 250M250 MG PO (09:49)
[2017-12-24] MEDS ORDERED: LIDODERM 5% PATC1 EA TP (09:52)
[2017-12-24] MEDS ORDERED: PERCOCET 325 MG1 TA3 PO (09:54)
[2017-12-24] MEDS ORDERED: PREDNISONE10 MG PO (09:54)
== END 2017-12-19 13:10 | disposition home or self-care (01) ==
LOC: COL.ER 23:06 → MEDICAL 12-18 01:42 → COL.ER 12-18 01:42 → MEDICAL 12-19 13:10
PROVIDERS: Emergency Medicine; Internal Medicine; Nurse Practitioner Family
DX: J96.00 Acute respiratory failure, unspecified whether with hypoxia or hypercapnia (principal); J10.1 Influenza due to other identified influenza virus with other respiratory manifestations; Z87.891 Personal history of nicotine dependence; G89.4 Chronic pain syndrome; F32.9 Major depressive disorder, single episode, unspecified; K21.9 Gastro-esophageal reflux disease without esophagitis; R14.0 Abdominal distension (gaseous); I48.91 Unspecified atrial fibrillation; Z79.01 Long term (current) use of anticoagulants; Z85.828 Personal history of other malignant neoplasm of skin; Z87.01 Personal history of pneumonia (recurrent); I34.0 Nonrheumatic mitral (valve) insufficiency; Z95.818 Presence of other cardiac implants and grafts
CPT/HCPCS: G0378; J2920; J2930; J7030

== ENCOUNTER → 2017-12-31 | Outpatient (CLI) | payer MEDICARE ==
[~2017-12-31] MED LIST changes: +AMOXICILLIN 8751 TAB PO; +COUMADIN 5MG5 MG/TAB PO; +LIDODERM 5% PATC1 EA TP; +MEDROL 4MG DOSPA4 MG PO; +TAMIFLU 75MG75 MG PO
== END ==
LOC: MHCPAIN 09:17
DX: G89.29 Other chronic pain (principal); M43.02 Spondylolysis, cervical region; Z87.891 Personal history of nicotine dependence
CPT/HCPCS: G0463

== ENCOUNTER 2018-01-24 17:59 | Emergency (ER) | payer MEDICARE ==
[~2018-01-24] VITALS: Ht 175.3 cm; Wt 61.4 kg
[2018-01-24 18:07] VITALS: BP 113/83; TEMP 98.3
[2018-01-24] MEDS ORDERED: PERCOCET 325 MG1 TA3 PO (19:04)
[2018-01-24 20:26] VITALS: PULSE 85
== END 2018-01-24 20:25 | disposition home or self-care (01) ==
LOC: COL.ER 17:59
DX: G89.29 Other chronic pain (principal); M25.512 Pain in left shoulder; J44.9 Chronic obstructive pulmonary disease, unspecified; R09.1 Pleurisy; Z79.51 Long term (current) use of inhaled steroids; Z79.01 Long term (current) use of anticoagulants

== ENCOUNTER 2018-01-27 00:48 | Inpatient (IN) | payer MEDICARE ==
[~2018-01-27] VITALS: Ht 175.3 cm; Wt 62.5 kg
[2018-01-27 01:32] LABS: BASO % 0.3 % (0.0-2.0); EOS % 0.2 % (0-4.0); GRAN # 9.2 (1.4-6.5); GRAN % 76.9 % (42.2-75.2); HEMATOCRIT 33.9 % (42.0-52.0); HEMOGLOBIN 11.3 g/dl (13.5-18.0); LYMPH # 1.4 (1.2-3.4); LYMPH % 12.1 % (20.0-51.0); MEAN CELL VOLUME 103 fl (80.0-100.0); MEAN CORPUSCULAR HEMOGLOBIN 34 pg (27.0-31.0); MEAN CORPUSCULAR HGB CONC 33 g/dl (33.0-37.0); MEAN PLATELET VOLUME 9.9 fl (7.4-10.4); MONO # 1.1 (0.1-0.6); MONO % 9.3 % (1.7-9.3); PLATELET COUNT 153 K/mm3 (130-400); RED BLOOD COUNT 3.29 M/mm3 (4.20-5.60)
[2018-01-27 01:35] LABS: INR 2.1 (0.8-3.0); PROTHROMBIN TIME 25.2 SECONDS (9.7-12.8)
[2018-01-27] MEDS ORDERED: LIORESAL 1010 MG/TAB PO (01:39)
[2018-01-27 01:40] LABS: ALANINE AMINOTRANSFERASE 23 U/L (21-72); ALBUMIN 3.7 gm/dL (3.5-5.0); ALKALINE PHOSPHATASE 55 U/L (50-136); ANION GAP 7 mmol/L (7-16); AST,SGOT 16 U/L (15-37); BILIRUBIN,TOTAL 0.3 mg/dL (0.0-1.0); BLOOD UREA NITROGEN 16 mg/dL (9-20); CALCIUM 8.5 mg/dL (8.4-10.2); CARBON DIOXIDE 29 mmol/L (22-30); CHLORIDE 100 mmol/L (98-107); CREATININE, serum 0.64 mg/dL (0.66-1.25); GLUCOSE 118 mg/dL (74-106); POTASSIUM 3.8 mmol/L (3.4-5.0); SODIUM 136 mmol/L (137-145); TOTAL PROTEIN 6.3 gm/dL (6.4-8.2)
[2018-01-27 02:01] LABS: TROPONIN-I < 0.012 ng/mL (0.000-0.034)
[2018-01-27 02:37] LABS: ARTERIAL BLD GAS O2 SATURATION 95.9 % (92-100); ARTERIAL BLD GAS TCO2 CT 34.2; ARTERIAL BLOOD GAS BASE EXCESS 4.4 (-2-2); ARTERIAL BLOOD GAS HCO3 32.2 meq/L (22-26); ARTERIAL BLOOD GAS PO2 92.9 mmHg (80-100); ARTERIAL BLOOD GAS pH 7.31 (7.35-7.45)
[2018-01-27 03:55] VITALS: BP 115/66; PULSE 84; TEMP 99.4
[2018-01-27 06:56] LABS: ARTERIAL BLD GAS O2 SATURATION 95.7 % (92-100); ARTERIAL BLD GAS TCO2 CT 32.3; ARTERIAL BLOOD GAS BASE EXCESS 3.7 (-2-2); ARTERIAL BLOOD GAS HCO3 30.5 meq/L (22-26); ARTERIAL BLOOD GAS PCO2 56.8 mmHg (35-45); ARTERIAL BLOOD GAS PO2 90.1 mmHg (80-100); ARTERIAL BLOOD GAS pH 7.35 (7.35-7.45)
[2018-01-27 07:44] VITALS: BP 84/63; PULSE 76; TEMP 98.8
[2018-01-27 08:10] VITALS: BP 93/64; PULSE 77
[2018-01-27 12:14] VITALS: BP 103/64; PULSE 84; TEMP 97.8
[2018-01-27 15:35] LABS: ARTERIAL BLD GAS O2 SATURATION 96.2 % (92-100); ARTERIAL BLD GAS TCO2 CT 30.8; ARTERIAL BLOOD GAS BASE EXCESS 3.3 (-2-2); ARTERIAL BLOOD GAS HCO3 29.2 meq/L (22-26); ARTERIAL BLOOD GAS PCO2 50.3 mmHg (35-45); ARTERIAL BLOOD GAS PO2 92.5 mmHg (80-100); ARTERIAL BLOOD GAS pH 7.38 (7.35-7.45)
[2018-01-27 16:02] VITALS: BP 101/62; PULSE 94; TEMP 98.2
[2018-01-27 20:08] VITALS: BP 112/64; PULSE 87; TEMP 97.5
[2018-01-28] VITALS (7 sets, daily range): BP systolic 101–136; BP diastolic 62–80; PULSE 77–111; TEMP 97.5–98.6
[2018-01-28 05:09] LABS: ARTERIAL BLD GAS O2 SATURATION 97.6 % (92-100); ARTERIAL BLD GAS TCO2 CT 31.4; ARTERIAL BLOOD GAS BASE EXCESS 4.3 (-2-2); ARTERIAL BLOOD GAS HCO3 29.9 meq/L (22-26); ARTERIAL BLOOD GAS PCO2 48.8 mmHg (35-45); ARTERIAL BLOOD GAS PO2 108.2 mmHg (80-100); ARTERIAL BLOOD GAS pH 7.41 (7.35-7.45)
[2018-01-28 07:51] LABS: BASO % 0.1 % (0.0-2.0); GRAN # 9.7 (1.4-6.5); GRAN % 89.3 % (42.2-75.2); LYMPH # 0.6 (1.2-3.4); LYMPH % 5.7 % (20.0-51.0); MEAN CELL VOLUME 104 fl (80.0-100.0); MEAN CORPUSCULAR HGB CONC 34 g/dl (33.0-37.0); MEAN PLATELET VOLUME 10.5 fl (7.4-10.4); MONO # 0.5 (0.1-0.6); MONO % 4.3 % (1.7-9.3); PLATELET COUNT 156 K/mm3 (130-400); RED BLOOD COUNT 2.92 M/mm3 (4.20-5.60); REDCELL DISTRIBUTION WIDTH-CV 15.7 % (11.5-14.5)
[2018-01-28 08:01] LABS: CALCIUM 8.4 mg/dL (8.4-10.2); CREATININE, serum 0.51 mg/dL (0.66-1.25)
[2018-01-28 08:08] LABS: INR 2.2 (0.8-3.0); PROTHROMBIN TIME 26.3 SECONDS (9.7-12.8)
[2018-01-28 08:12] LABS: HEMATOCRIT 30.3 % (42.0-52.0); HEMOGLOBIN 10.2 g/dl (13.5-18.0); MEAN CORPUSCULAR HEMOGLOBIN 35 pg (27.0-31.0)
[2018-01-29 02:40] VITALS: BP 118/75; PULSE 80; TEMP 98.5
[2018-01-29 05:11] LABS: ARTERIAL BLD GAS O2 SATURATION 97.5 % (92-100); ARTERIAL BLD GAS TCO2 CT 32.1; ARTERIAL BLOOD GAS BASE EXCESS 6.2 (-2-2); ARTERIAL BLOOD GAS HCO3 30.7 meq/L (22-26); ARTERIAL BLOOD GAS PCO2 44.4 mmHg (35-45); ARTERIAL BLOOD GAS PO2 110.7 mmHg (80-100); ARTERIAL BLOOD GAS pH 7.46 (7.35-7.45)
[2018-01-29 06:25] LABS: BASO % 0.1 % (0.0-2.0); GRAN # 15.4 (1.4-6.5); GRAN % 88.3 % (42.2-75.2); LYMPH # 0.7 (1.2-3.4); LYMPH % 4.3 % (20.0-51.0); MEAN CELL VOLUME 102 fl (80.0-100.0); MEAN CORPUSCULAR HGB CONC 33 g/dl (33.0-37.0); MEAN PLATELET VOLUME 10.6 fl (7.4-10.4); MONO # 1.1 (0.1-0.6); MONO % 6.4 % (1.7-9.3); PLATELET COUNT 174 K/mm3 (130-400); RED BLOOD COUNT 2.92 M/mm3 (4.20-5.60); REDCELL DISTRIBUTION WIDTH-CV 16.1 % (11.5-14.5)
[2018-01-29 06:36] LABS: HEMATOCRIT 29.9 % (42.0-52.0); MEAN CORPUSCULAR HEMOGLOBIN 34 pg (27.0-31.0)
[2018-01-29 06:44] LABS: CALCIUM 8.7 mg/dL (8.4-10.2); CREATININE, serum 0.57 mg/dL (0.66-1.25)
[2018-01-29 07:40] VITALS: BP 126/67; PULSE 94; TEMP 98.6
[2018-01-29 11:00] VITALS: BP 132/77; PULSE 103; TEMP 97.1
[2018-01-29] MEDS ORDERED: ZITHROMAX Z PA250 MG PO (11:54)
[2018-01-29] MEDS ORDERED: OMNICEF 300MG300 MG PO (11:55)
[2018-01-29] MEDS ORDERED: PREDNISONE10 MG PO (11:57)
[2018-01-29] MEDS ORDERED: PERCOCET 325 MG1 TA3 PO (11:58)
[2018-01-29] MEDS ORDERED: TYLENOL 325MG325 MG PO (11:58)
[2018-01-29] MEDS ORDERED: RESTORIL30 MG PO (12:04)
== END 2018-01-29 15:00 | DRG 193 ==
LOC: COL.ER 00:48 → MEDICAL 03:06
PROVIDERS: Emergency Medicine; Internal Medicine Pulmonary Disease; Nurse Practitioner; Physician Assistant
DX: J18.9 Pneumonia, unspecified organism (principal); J96.02 Acute respiratory failure with hypercapnia; J96.01 Acute respiratory failure with hypoxia; J44.1 Chronic obstructive pulmonary disease with (acute) exacerbation; I48.92 Unspecified atrial flutter; J44.0 Chronic obstructive pulmonary disease with (acute) lower respiratory infection; E44.0 Moderate protein-calorie malnutrition; I48.91 Unspecified atrial fibrillation; F17.210 Nicotine dependence, cigarettes, uncomplicated; K21.9 Gastro-esophageal reflux disease without esophagitis; G89.29 Other chronic pain; Z85.110 Personal history of malignant carcinoid tumor of bronchus and lung; I27.20 Pulmonary hypertension, unspecified
CPT/HCPCS: 99222-AI; 99231-AI; 99239; J0692; J2920; J7040; J7512

== ENCOUNTER → 2018-02-04 | Outpatient (CLI) | payer MEDICARE ==
[~2018-02-04] MED LIST changes: +LIORESAL 1010 MG/TAB PO; +OMNICEF 300MG300 MG PO; +TYLENOL 325MG325 MG PO; +ZITHROMAX Z PA250 MG PO
== END ==
LOC: MHCPAIN 11:53
DX: G89.29 Other chronic pain (principal); M50.10 Cervical disc disorder with radiculopathy, unspecified cervical region; Z87.891 Personal history of nicotine dependence
CPT/HCPCS: G0463

== ENCOUNTER 2018-02-11 11:56 | Emergency (ER) | payer MEDICARE ==
[~2018-02-11] VITALS: Ht 175.3 cm; Wt 59.1 kg
[2018-02-11 12:03] VITALS: TEMP 98.3
[2018-02-11 13:03] LABS: BASO # 0.1 (0.0-0.2); BASO % 0.5 % (0.0-2.0); EOS # 0.1 (0.0-0.7); GRAN # 9.3 (1.4-6.5); GRAN % 76.9 % (42.2-75.2); HEMATOCRIT 33.7 % (42.0-52.0); HEMOGLOBIN 11.3 g/dl (13.5-18.0); LYMPH # 1.3 (1.2-3.4); LYMPH % 10.9 % (20.0-51.0); MEAN CELL VOLUME 103 fl (80.0-100.0); MEAN CORPUSCULAR HEMOGLOBIN 35 pg (27.0-31.0); MEAN CORPUSCULAR HGB CONC 34 g/dl (33.0-37.0); MEAN PLATELET VOLUME 9.5 fl (7.4-10.4); MONO # 1.2 (0.1-0.6); MONO % 10.1 % (1.7-9.3); PLATELET COUNT 226 K/mm3 (130-400); RED BLOOD COUNT 3.27 M/mm3 (4.20-5.60); REDCELL DISTRIBUTION WIDTH-CV 15.1 % (11.5-14.5)
[2018-02-11 13:06] LABS: INR 1.7 (0.8-3.0); PROTHROMBIN TIME 19.8 SECONDS (9.7-12.8)
[2018-02-11 13:13] LABS: ALANINE AMINOTRANSFERASE 27 U/L (21-72); ALBUMIN 3.8 gm/dL (3.5-5.0); ALKALINE PHOSPHATASE 60 U/L (50-136); ANION GAP 8 mmol/L (7-16); AST,SGOT 17 U/L (15-37); BILIRUBIN,TOTAL 0.3 mg/dL (0.0-1.0); BLOOD UREA NITROGEN 16 mg/dL (9-20); CALCIUM 9.1 mg/dL (8.4-10.2); CARBON DIOXIDE 33 mmol/L (22-30); CHLORIDE 98 mmol/L (98-107); CREATININE, serum 0.69 mg/dL (0.66-1.25); GLUCOSE 117 mg/dL (74-106); POTASSIUM 3.5 mmol/L (3.4-5.0); SODIUM 139 mmol/L (137-145); TOTAL PROTEIN 6.5 gm/dL (6.4-8.2)
[2018-02-11 13:26] LABS: TROPONIN-I < 0.012 ng/mL (0.000-0.034)
[2018-02-11 17:33] VITALS: BP 115/91; PULSE 90
== END 2018-02-11 17:35 | disposition home or self-care (01) ==
LOC: COL.ER 11:56
PROVIDERS: Emergency Medicine
DX: J44.9 Chronic obstructive pulmonary disease, unspecified (principal); I10 Essential (primary) hypertension; E78.5 Hyperlipidemia, unspecified; Z90.89 Acquired absence of other organs; Z98.890 Other specified postprocedural states; Z79.52 Long term (current) use of systemic steroids; Z79.51 Long term (current) use of inhaled steroids; Z79.01 Long term (current) use of anticoagulants; Z90.2 Acquired absence of lung [part of]

== ENCOUNTER 2018-02-13 00:08 | Emergency (ER) | payer MEDICARE ==
[~2018-02-13] VITALS: Ht 170.2 cm; Wt 63.6 kg
[2018-02-13 00:24] LABS: ARTERIAL BLD GAS O2 SATURATION 98.2 % (92-100); ARTERIAL BLD GAS TCO2 CT 28.4; ARTERIAL BLOOD GAS BASE EXCESS 0.5 (-2-2); ARTERIAL BLOOD GAS HCO3 26.9 meq/L (22-26); ARTERIAL BLOOD GAS PCO2 50.7 mmHg (35-45); ARTERIAL BLOOD GAS pH 7.34 (7.35-7.45)
[2018-02-13 00:25] LABS: BASO % 0.2 % (0.0-2.0); EOS % 0.1 % (0-4.0); LYMPH % 7.5 % (20.0-51.0); MEAN CELL VOLUME 104 fl (80.0-100.0); MEAN CORPUSCULAR HGB CONC 33 g/dl (33.0-37.0); MEAN PLATELET VOLUME 9.2 fl (7.4-10.4); MONO # 0.7 (0.1-0.6); PLATELET COUNT 239 K/mm3 (130-400); RED BLOOD COUNT 3.44 M/mm3 (4.20-5.60); REDCELL DISTRIBUTION WIDTH-CV 15.3 % (11.5-14.5)
[2018-02-13 00:26] LABS: ARTERIAL BLOOD GAS PO2 145.3 mmHg (80-100)
[2018-02-13 00:26] LABS: HEMATOCRIT 35.9 % (42.0-52.0); HEMOGLOBIN 11.8 g/dl (13.5-18.0); MEAN CORPUSCULAR HEMOGLOBIN 34 pg (27.0-31.0)
[2018-02-13 00:30] LABS: PROTHROMBIN TIME 23.7 SECONDS (9.7-12.8)
[2018-02-13 00:35] LABS: ALANINE AMINOTRANSFERASE 30 U/L (21-72); ALKALINE PHOSPHATASE 64 U/L (50-136); ANION GAP 13 mmol/L (7-16); AST,SGOT 18 U/L (15-37); BILIRUBIN,TOTAL 0.4 mg/dL (0.0-1.0); BLOOD UREA NITROGEN 18 mg/dL (9-20); CALCIUM 9.2 mg/dL (8.4-10.2); CARBON DIOXIDE 31 mmol/L (22-30); CHLORIDE 96 mmol/L (98-107); CREATINE KINASE 32 U/L (55-170); CREATININE, serum 1.35 mg/dL (0.66-1.25); GLUCOSE 149 mg/dL (74-106); SODIUM 140 mmol/L (137-145)
[2018-02-13 00:47] LABS: TROPONIN-I < 0.012 ng/mL (0.000-0.034)
[2018-02-13 00:51] LABS: PROLACTIN 85.6 ng/mL (3.7-17.9)
[2018-02-13 01:44] VITALS: TEMP 97.7
[2018-02-13 02:56] LABS: ARTERIAL BLD GAS O2 SATURATION 90.5 % (92-100); ARTERIAL BLD GAS TCO2 CT 31.9; ARTERIAL BLOOD GAS BASE EXCESS 0.3 (-2-2); ARTERIAL BLOOD GAS HCO3 29.6 meq/L (22-26); ARTERIAL BLOOD GAS PCO2 74.3 mmHg (35-45); ARTERIAL BLOOD GAS PO2 73.9 mmHg (80-100); ARTERIAL BLOOD GAS pH 7.22 (7.35-7.45)
[2018-02-13 04:05] VITALS: BP 95/65; PULSE 53
== END 2018-02-13 04:05 | disposition short-term general hospital (02) ==
LOC: COL.ER 00:08
PROVIDERS: Emergency Medicine
DX: A41.9 Sepsis, unspecified organism (principal); J96.02 Acute respiratory failure with hypercapnia; N17.9 Acute kidney failure, unspecified; R65.20 Severe sepsis without septic shock; J18.1 Lobar pneumonia, unspecified organism; I11.0 Hypertensive heart disease with heart failure; I50.9 Heart failure, unspecified; I48.91 Unspecified atrial fibrillation; I48.92 Unspecified atrial flutter; J44.9 Chronic obstructive pulmonary disease, unspecified; G62.9 Polyneuropathy, unspecified; F17.210 Nicotine dependence, cigarettes, uncomplicated; Z85.118 Personal history of other malignant neoplasm of bronchus and lung; Z98.890 Other specified postprocedural states; Z79.52 Long term (current) use of systemic steroids; Z79.51 Long term (current) use of inhaled steroids; Z79.01 Long term (current) use of anticoagulants
CPT/HCPCS: J0330; J1953; J1956; J2060; J2543; J2704; J2930; J3010; J7030

== ENCOUNTER 2018-03-20 10:55 | Observation (INO) | payer MEDICARE ==
[~2018-03-20] VITALS: Ht 175.3 cm; Wt 64.1 kg
[2018-03-20 11:26] LABS: BASO % 0.2 % (0.0-2.0); EOS % 0.3 % (0-4.0); GRAN # 10.6 (1.4-6.5); GRAN % 84.9 % (42.2-75.2); LYMPH # 0.9 (1.2-3.4); LYMPH % 7.3 % (20.0-51.0); MEAN CELL VOLUME 107 fl (80.0-100.0); MEAN CORPUSCULAR HGB CONC 33 g/dl (33.0-37.0); MEAN PLATELET VOLUME 9.7 fl (7.4-10.4); MONO # 0.8 (0.1-0.6); MONO % 6.7 % (1.7-9.3); PLATELET COUNT 295 K/mm3 (130-400); REDCELL DISTRIBUTION WIDTH-CV 16.4 % (11.5-14.5)
[2018-03-20 11:29] LABS: HEMATOCRIT 33.3 % (42.0-52.0); MEAN CORPUSCULAR HEMOGLOBIN 35 pg (27.0-31.0)
[2018-03-20] MEDS ORDERED: PROTONIX 40MG T40 MG PO (11:36)
[2018-03-20] MEDS ORDERED: ZINC SULFATE 111 TAB (11:37)
[2018-03-20] MEDS ORDERED: VITAMINC500CH (11:38)
[2018-03-20] MEDS ORDERED: VENTOLIN0.09 MG IH (11:39)
[2018-03-20] MEDS ORDERED: FLEXERIL 1010 MG/TAB PO ×2 (11:40→17:10)
[2018-03-20] MEDS ORDERED: NICODERM C21 MG/PATC TD (11:41)
[2018-03-20] MEDS ORDERED: CYMBALTA 60MG60 MG PO (11:41)
[2018-03-20 11:42] LABS: PROTHROMBIN TIME 23.1 SECONDS (9.7-12.8)
[2018-03-20] MEDS ORDERED: VOLTAREN GEL 1%1 TU TP (11:43)
[2018-03-20] MEDS ORDERED: LYRICA 150MG C150 MG PO ×2 (11:44→11:53)
[2018-03-20] MEDS ORDERED: ZITHROMAX 250M250 MG PO (11:45)
[2018-03-20] MEDS ORDERED: CHANTIX 1MG1 MG PO ×2 (11:46→11:55)
[2018-03-20] MEDS ORDERED: COUMADIN4 MG PO ×2 (11:46→11:56)
[2018-03-20 11:50] LABS: ALBUMIN 3.8 gm/dL (3.5-5.0); BILIRUBIN,TOTAL 0.4 mg/dL (0.0-1.0); CALCIUM 9.1 mg/dL (8.4-10.2); CREATININE, serum 0.68 mg/dL (0.66-1.25); POTASSIUM 3.8 mmol/L (3.4-5.0); TOTAL PROTEIN 6.8 gm/dL (6.4-8.2)
[2018-03-20] MEDS ORDERED: DALIRESP500 MCG PO (11:53)
[2018-03-20] MEDS ORDERED: CARDIZEM CD 18180 MG PO (11:54)
[2018-03-20] MEDS ORDERED: PREDNISONE10 MG PO ×2 (11:57→17:14)
[2018-03-20] MEDS ORDERED: D-2000 90 MG-201 TAB PO (11:58)
[2018-03-20] MEDS ORDERED: PREDNISONE20 MG PO (13:51)
[2018-03-20] MEDS ORDERED: LIORESAL 1010 MG/TAB PO (17:08)
[2018-03-20] MEDS ORDERED: CELEXA10 MG PO (17:09)
[2018-03-20 17:25] LABS: ARTERIAL BLD GAS O2 SATURATION 98.1 % (92-100); ARTERIAL BLOOD GAS BASE EXCESS 1.8 (-2-2); ARTERIAL BLOOD GAS PCO2 39.3 mmHg (35-45); ARTERIAL BLOOD GAS PO2 121.3 mmHg (80-100); ARTERIAL BLOOD GAS pH 7.44 (7.35-7.45)
[2018-03-20 17:26] LABS: ARTERIAL BLD GAS TCO2 CT 27.2
[2018-03-20 17:54] VITALS: BP 106/76; PULSE 98; TEMP 98
[2018-03-20 19:35] VITALS: BP 130/82; PULSE 105; TEMP 97
[2018-03-20 23:29] VITALS: BP 98/67; PULSE 91; TEMP 97.5
[2018-03-21 04:03] VITALS: BP 113/72; PULSE 91; TEMP 97.5
[2018-03-21 06:16] LABS: GRAN # 9.1 (1.4-6.5); GRAN % 89.7 % (42.2-75.2); LYMPH # 0.7 (1.2-3.4); LYMPH % 6.5 % (20.0-51.0); MEAN CELL VOLUME 103 fl (80.0-100.0); MEAN CORPUSCULAR HGB CONC 34 g/dl (33.0-37.0); MEAN PLATELET VOLUME 9.7 fl (7.4-10.4); MONO # 0.3 (0.1-0.6); MONO % 2.7 % (1.7-9.3); PLATELET COUNT 245 K/mm3 (130-400); RED BLOOD COUNT 2.76 M/mm3 (4.20-5.60); REDCELL DISTRIBUTION WIDTH-CV 16.1 % (11.5-14.5)
[2018-03-21 06:23] LABS: INR 1.7 (0.8-3.0); PROTHROMBIN TIME 20.2 SECONDS (9.7-12.8)
[2018-03-21 06:25] LABS: HEMATOCRIT 28.5 % (42.0-52.0); HEMOGLOBIN 9.6 g/dl (13.5-18.0); MEAN CORPUSCULAR HEMOGLOBIN 35 pg (27.0-31.0)
[2018-03-21 06:32] LABS: CALCIUM 8.6 mg/dL (8.4-10.2); CREATININE, serum 0.56 mg/dL (0.66-1.25); POTASSIUM 3.8 mmol/L (3.4-5.0)
[2018-03-21 07:57] VITALS: BP 131/82; PULSE 105; TEMP 97.4
[2018-03-21] MEDS ORDERED: PREDNISONE20 MG PO (09:45)
[2018-03-21 10:24] VITALS: BP 131/82; PULSE 105; TEMP 97.4
== END 2018-03-21 11:40 ==
LOC: COL.ER 10:55 → MEDICAL 13:55
PROVIDERS: Emergency Medicine; Physician Assistant
DX: R06.02 Shortness of breath (principal); R05 Cough; J44.9 Chronic obstructive pulmonary disease, unspecified; I48.92 Unspecified atrial flutter; I11.0 Hypertensive heart disease with heart failure; I50.30 Unspecified diastolic (congestive) heart failure; I95.9 Hypotension, unspecified; D53.9 Nutritional anemia, unspecified; F41.9 Anxiety disorder, unspecified; K21.9 Gastro-esophageal reflux disease without esophagitis; E78.5 Hyperlipidemia, unspecified; R25.1 Tremor, unspecified; J90 Pleural effusion, not elsewhere classified; G62.9 Polyneuropathy, unspecified; R91.1 Solitary pulmonary nodule; Z79.01 Long term (current) use of anticoagulants; Z79.51 Long term (current) use of inhaled steroids; Z90.2 Acquired absence of lung [part of]; Z87.891 Personal history of nicotine dependence; Z85.118 Personal history of other malignant neoplasm of bronchus and lung; Z82.49 Family history of ischemic heart disease and other diseases of the circulatory system
CPT/HCPCS: 99223-AI; 99239; G0378; G8987-GO; G8988-GO; J2920; J2930; J3475; J7030; Q9967

== ENCOUNTER → 2018-03-24 | Outpatient (REF) ==
[~2018-03-24] MED LIST changes: +CARDIZEM CD 18180 MG PO; +CHANTIX 1MG1 MG PO; +COUMADIN4 MG PO; +CYMBALTA 60MG60 MG PO; +D-2000 90 MG-201 TAB PO; +FLEXERIL 1010 MG/TAB PO; +NICODERM C21 MG/PATC TD; +PROTONIX 40MG T40 MG PO; +VENTOLIN0.09 MG IH; +VITAMINC500CH; +VOLTAREN GEL 1%1 TU TP; +ZINC SULFATE 111 TAB
[2018-03-24 17:30] LABS: MEAN CELL VOLUME 104 fl (80.0-100.0); MEAN CORPUSCULAR HGB CONC 34 g/dl (33.0-37.0); MEAN PLATELET VOLUME 9.8 fl (7.4-10.4); PLATELET COUNT 308 K/mm3 (130-400)
[2018-03-24 17:35] LABS: HEMATOCRIT 34.3 % (42.0-52.0); HEMOGLOBIN 11.5 g/dl (13.5-18.0); MEAN CORPUSCULAR HEMOGLOBIN 35 pg (27.0-31.0)
[2018-03-24 17:37] LABS: CALCIUM 9.5 mg/dL (8.4-10.2); CREATININE, serum 0.71 mg/dL (0.66-1.25); POTASSIUM 3.8 mmol/L (3.4-5.0)
[2018-03-24 18:23] LABS: ANISOCYTOSIS 1+; BAND 3 % (0-10); LYMPHOCYTE 5 % (20.0-51.0); NEUTROPHILS 87 % (42.0-75.2); PLATELET ESTIMATE NORMAL (NORMAL)
== END ==
LOC: ZCOL.LAB 17:27
PROVIDERS: Family Medicine
DX: I11.0 Hypertensive heart disease with heart failure (principal); I50.9 Heart failure, unspecified

== ENCOUNTER 2018-03-31 08:49 | Day surgery (SDC) | payer MEDICARE ==
[~2018-03-31] VITALS: Ht 175.4 cm; Wt 78.2 kg
[2018-03-31] VITALS (11 sets, daily range): BP systolic 94–114; BP diastolic 61–78; PULSE 55–95; TEMP 97.8–98.2
[2018-03-31] MEDS ORDERED: VITAMIN C500 MG PO (09:07)
[2018-03-31] MEDS ORDERED: VENTOLIN0.09 MG IH (09:08)
[2018-03-31] MEDS ORDERED: CYMBALTA 60MG60 MG PO (09:09)
[2018-03-31 09:12] LABS: HEMATOCRIT 37.3 % (42.0-52.0); HEMOGLOBIN 12.2 g/dl (13.5-18.0); MEAN CELL VOLUME 107 fl (80.0-100.0); MEAN CORPUSCULAR HEMOGLOBIN 35 pg (27.0-31.0); MEAN CORPUSCULAR HGB CONC 33 g/dl (33.0-37.0); MEAN PLATELET VOLUME 9.4 fl (7.4-10.4); PLATELET COUNT 214 K/mm3 (130-400); REDCELL DISTRIBUTION WIDTH-CV 15.4 % (11.5-14.5)
[2018-03-31] MEDS ORDERED: VOLTAREN GEL 1%1 TU TP (09:12)
[2018-03-31 09:16] LABS: PROTHROMBIN TIME 11.7 SECONDS (9.7-12.8)
[2018-03-31] MEDS ORDERED: VALTREX1 GM PO (09:22)
[2018-03-31 09:23] LABS: CALCIUM 9.1 mg/dL (8.4-10.2); CREATININE, serum 0.63 mg/dL (0.66-1.25); POTASSIUM 3.6 mmol/L (3.4-5.0)
[2018-04-01 00:05] VITALS: BP 102/66; PULSE 86; TEMP 98.6
[2018-04-01 04:08] VITALS: BP 95/55; PULSE 86; TEMP 98
[2018-04-01 08:17] VITALS: BP 102/67; PULSE 90; TEMP 97.8
[2018-04-01] MEDS ORDERED: MULTAQ400 MG PO (10:30)
[2018-04-01] MEDS ORDERED: CEPHALEXIN500 M1 PO (10:31)
[2018-04-01 11:27] VITALS: BP 94/63; PULSE 94; TEMP 98.4
== END 2018-04-01 14:19 | disposition home or self-care (01) ==
LOC: COL.CAR 08:49 → SURG 11:40 → COL.CAR 04-01 14:19
PROVIDERS: Internal Medicine Cardiovascular Disease
DX: I49.5 Sick sinus syndrome (principal); I48.0 Paroxysmal atrial fibrillation; J96.11 Chronic respiratory failure with hypoxia; J90 Pleural effusion, not elsewhere classified; J44.9 Chronic obstructive pulmonary disease, unspecified; I11.0 Hypertensive heart disease with heart failure; I50.9 Heart failure, unspecified; Z85.118 Personal history of other malignant neoplasm of bronchus and lung; Z90.2 Acquired absence of lung [part of]; Z79.899 Other long term (current) drug therapy; Z79.2 Long term (current) use of antibiotics; Q21.1 Atrial septal defect; R01.1 Cardiac murmur, unspecified; Z79.01 Long term (current) use of anticoagulants; Z87.891 Personal history of nicotine dependence; I25.10 Atherosclerotic heart disease of native coronary artery without angina pectoris; I27.20 Pulmonary hypertension, unspecified
CPT/HCPCS: OP; C1769; C1785; C1894; C1898; J0690; J2250; J3010; J7030

== ENCOUNTER 2018-04-08 08:19 | Outpatient (CLI) | payer MEDICARE ==
[~2018-04-08] VITALS: Ht 175.3 cm; Wt 61.5 kg
[~2018-04-08 08:19] MED LIST changes: +CEPHALEXIN500 M1 PO; +MULTAQ400 MG PO; +VALTREX1 GM PO; +VITAMIN C500 MG PO; -ZINC SULFATE 111 TAB; +ZINC SULFATE 111 TAB PO
[2018-04-08 09:03] LABS: BASO % 0.2 % (0.0-2.0); EOS # 0.1 (0.0-0.7); EOS % 0.5 % (0-4.0); GRAN # 11.9 (1.4-6.5); GRAN % 80.4 % (42.2-75.2); LYMPH # 1.6 (1.2-3.4); LYMPH % 10.7 % (20.0-51.0); MEAN CELL VOLUME 109 fl (80.0-100.0); MEAN CORPUSCULAR HEMOGLOBIN 35 pg (27.0-31.0); MEAN CORPUSCULAR HGB CONC 33 g/dl (33.0-37.0); MONO # 1.1 (0.1-0.6); MONO % 7.7 % (1.7-9.3); PLATELET COUNT 144 K/mm3 (130-400); RED BLOOD COUNT 2.83 M/mm3 (4.20-5.60); REDCELL DISTRIBUTION WIDTH-CV 15.6 % (11.5-14.5)
[2018-04-08 09:06] LABS: HEMATOCRIT 30.8 % (42.0-52.0)
[2018-04-08 09:18] LABS: INR 1.1 (0.8-3.0)
[2018-04-08] MEDS ORDERED: PREDNISONE10 MG PO (09:20)
[2018-04-08 09:38] VITALS: BP 118/71; PULSE 86; TEMP 98
[2018-04-08 10:30] VITALS: BP 103/63; PULSE 80
[2018-04-08 11:00] VITALS: BP 108/56; PULSE 82
[2018-04-08 11:00] LABS: PLEURAL FLUID RBC 42000 /mm3 (0-0); PLEURAL FLUID WBC 818 /mm3
[2018-04-08 11:07] LABS: GLUCOSE,PLEURAL FLUID 88 mg/dL; TOTAL PROTEIN,PLEURAL FLUID 3.4 gm/dL
[2018-04-08 11:12] LABS: HEMATOCRIT 0.5 % (42.0-52.0); HEMOGLOBIN 0.1 g/dl (13.5-18.0)
[2018-04-08 12:40] LABS: PLEURAL FLUID APPEARANCE HAZY; PLEURAL FLUID COLOR RED
[2018-04-08 15:03] VITALS: BP 106/65; PULSE 81
== END 2018-04-08 11:20 ==
LOC: SDCO 08:19
PROVIDERS: Internal Medicine Pulmonary Disease
DX: J90 Pleural effusion, not elsewhere classified (principal); J44.9 Chronic obstructive pulmonary disease, unspecified; R55 Syncope and collapse; Z85.118 Personal history of other malignant neoplasm of bronchus and lung; Z90.2 Acquired absence of lung [part of]
CPT/HCPCS: 19804

== ENCOUNTER 2018-04-17 12:46 | Emergency (ER) | payer MEDICARE ==
[~2018-04-17] VITALS: Ht 175.3 cm; Wt 61.8 kg
[~2018-04-17 12:46] MED LIST changes: -PRIL40 PO; -ZOLOFT 100MG100 MG PO
[2018-04-17 12:49] VITALS: TEMP 98.7
[2018-04-17 13:12] LABS: MEAN CELL VOLUME 106 fl (80.0-100.0); MEAN CORPUSCULAR HEMOGLOBIN 35 pg (27.0-31.0); MEAN CORPUSCULAR HGB CONC 33 g/dl (33.0-37.0); MEAN PLATELET VOLUME 9.8 fl (7.4-10.4); PLATELET COUNT 213 K/mm3 (130-400); RED BLOOD COUNT 3.17 M/mm3 (4.20-5.60); REDCELL DISTRIBUTION WIDTH-CV 15.6 % (11.5-14.5)
[2018-04-17 13:15] LABS: HEMATOCRIT 33.5 % (42.0-52.0)
[2018-04-17 13:29] LABS: ALANINE AMINOTRANSFERASE 33 U/L (21-72); ALKALINE PHOSPHATASE 81 U/L (50-136); ANION GAP 13 mmol/L (7-16); AST,SGOT 18 U/L (15-37); BILIRUBIN,TOTAL 0.5 mg/dL (0.0-1.0); BLOOD UREA NITROGEN 23 mg/dL (9-20); C-REACTIVE PROTEIN 3.8 mg/dL (0.0-0.9); CALCIUM 9.3 mg/dL (8.4-10.2); CARBON DIOXIDE 34 mmol/L (22-30); CHLORIDE 96 mmol/L (98-107); CREATININE, serum 0.65 mg/dL (0.66-1.25); GLUCOSE 114 mg/dL (74-106); POTASSIUM 3.6 mmol/L (3.4-5.0); SODIUM 143 mmol/L (137-145); TOTAL PROTEIN 7.5 gm/dL (6.4-8.2)
[2018-04-17] MEDS ORDERED: PRIL40 PO (13:32)
[2018-04-17] MEDS ORDERED: VITAMIN C500 MG PO (13:33)
[2018-04-17] MEDS ORDERED: DALIRESP500 MCG PO (13:35)
[2018-04-17] MEDS ORDERED: LIORESAL 1010 MG/TAB PO (13:37)
[2018-04-17] MEDS ORDERED: MULTAQ400 MG PO ×2 (13:39→14:22)
[2018-04-17] MEDS ORDERED: ZOLOFT 100MG100 MG PO (13:40)
[2018-04-17] MEDS ORDERED: AMOXICILLIN 8751 TAB PO (13:41)
[2018-04-17 13:42] LABS: INR 1.1 (0.8-3.0); PROTHROMBIN TIME 12.2 SECONDS (9.7-12.8); TROPONIN-I < 0.012 ng/mL (0.000-0.034)
[2018-04-17 13:44] LABS: PARTIAL THROMBOPLASTIN TIME 30.4 SECONDS (26.0-37.0)
[2018-04-17 13:57] LABS: ARTERIAL BLD GAS TCO2 CT 36.6; ARTERIAL BLOOD GAS BASE EXCESS 8.2 (-2-2); ARTERIAL BLOOD GAS HCO3 34.7 meq/L (22-26); ARTERIAL BLOOD GAS PCO2 59.5 mmHg (35-45); ARTERIAL BLOOD GAS pH 7.38 (7.35-7.45)
[2018-04-17 13:58] LABS: ARTERIAL BLOOD GAS PO2 134.2 mmHg (80-100)
[2018-04-17 14:07] LABS: BAND 1 % (0-10); LYMPHOCYTE 3 % (20.0-51.0); NEUTROPHILS 96 % (42.0-75.2)
[2018-04-17 14:08] LABS: ANISOCYTOSIS 1+; PLATELET ESTIMATE NORMAL (NORMAL)
[2018-04-17] MEDS ORDERED: RESTORIL30 MG PO (14:21)
[2018-04-17] MEDS ORDERED: CARDIZEM CD 18180 MG PO (14:22)
[2018-04-17 15:05] VITALS: BP 100/69; PULSE 83
[2018-04-17] MEDS ORDERED: ZITHROMAX 250M250 MG PO (15:05)
[2018-04-17] MEDS ORDERED: PREDNISONE20 MG PO (15:05)
== END 2018-04-17 15:48 | disposition home or self-care (01) ==
LOC: COL.ER 12:46
PROVIDERS: Emergency Medicine
DX: J44.1 Chronic obstructive pulmonary disease with (acute) exacerbation (principal); J90 Pleural effusion, not elsewhere classified; I10 Essential (primary) hypertension; Z95.0 Presence of cardiac pacemaker; Z90.89 Acquired absence of other organs; Z85.118 Personal history of other malignant neoplasm of bronchus and lung
CPT/HCPCS: J7512

== ENCOUNTER → 2018-04-17 | Outpatient (REF) ==
[~2018-04-17] MED LIST changes: +PRIL40 PO; +ZOLOFT 100MG100 MG PO
== END ==
LOC: ZCOL.LAB 15:55
DX: Z01.89 Encounter for other specified special examinations (principal)

== ENCOUNTER 2018-04-18 07:31 | Outpatient (CLI) | payer MEDICARE ==
[~2018-04-18] VITALS: Ht 175.3 cm; Wt 61.0 kg
[~2018-04-18 07:31] MED LIST changes: +PRIL40 PO; +ZOLOFT 100MG100 MG PO
[2018-04-18 09:35] VITALS: BP 101/69; PULSE 76
[2018-04-18 09:50] VITALS: BP 108/89; PULSE 787
[2018-04-18 10:05] VITALS: BP 99/63; PULSE 77
[2018-04-18 10:20] VITALS: BP 100/65; PULSE 76
[2018-04-18 10:35] VITALS: BP 103/68; PULSE 84
[2018-04-18 17:29] VITALS: BP 84/64; PULSE 77
== END 2018-04-18 12:00 | disposition home or self-care (01) ==
LOC: SDCO 07:31
DX: J90 Pleural effusion, not elsewhere classified (principal); R06.02 Shortness of breath; R09.02 Hypoxemia; I48.91 Unspecified atrial fibrillation; Z86.73 Personal history of transient ischemic attack (TIA), and cerebral infarction without residual deficits; I27.20 Pulmonary hypertension, unspecified; J44.9 Chronic obstructive pulmonary disease, unspecified; Z85.118 Personal history of other malignant neoplasm of bronchus and lung; Z85.828 Personal history of other malignant neoplasm of skin; F17.210 Nicotine dependence, cigarettes, uncomplicated
CPT/HCPCS: 19804